=== PATIENT | male | born 1960 | race African-American/Black ===

== ENCOUNTER 2022-05-06 16:21 | Emergency (ER) | payer SELFPAY ==
[~2022-05-06] VITALS: Ht 175.3 cm; Wt 79.0 kg
[2022-05-06 16:46] VITALS: BP 214/97
[2022-05-06] MEDS ORDERED: PREDNISONE 20MG TABLET PO STA (16:59)
[2022-05-06] MEDS ORDERED: ALBUTEROL (0.083%) 2.5MG/3ML NEB HHN STA (16:59)
[2022-05-06 17:50] LABS: BASOPHILS % 0.7 % (0.0-2.0); EOSINOPHILS % 7.6 % (0.0-5.0); HEMATOCRIT. 51.3 % (42.0-52.0); HEMOGLOBIN. 16.6 g/dL (14.0-18.0); LYMPHOCYTES % 14.1 % (20.0-50.0); MEAN CORPUSCULAR HEMOGLOBIN 27.6 pg (28.0-32.0); MEAN CORPUSCULAR VOLUME 85.4 fL (80.0-94.0); MEAN PLATELET VOLUME 9.6 fl (7.4-10.4); MONOCYTES % 7.2 % (2.0-8.0); NEUTROPHILS % 70.4 % (40.0-76.0); PLATELET 209 x1000/uL (130-400); RED CELL DISTRIBUTION WIDTH 14.9 % (11.6-14.6)
[2022-05-06 17:59] LABS: CHLORIDE 105 mEq/L (98-107)
[2022-05-06] MEDS ORDERED: P50 MT (19:18)
[2022-05-06] MEDS ORDERED: ALBU6.7H3 INH (19:18)
== END 2022-05-06 19:45 | disposition home or self-care (01) ==
LOC: ER 16:21
DX: R06.03 Acute respiratory distress (principal); J44.1 Chronic obstructive pulmonary disease with (acute) exacerbation
CPT/HCPCS: 36415; 71045; 80053; 83880; 84484; 85025; 93005; 94640; 99285; J7512; Z7610